=== PATIENT | male | born 1960 | race Caucasian/White ===

== ENCOUNTER 2017-04-07 16:18 | Emergency (ER) | payer MEDICARE ==
[~2017-04-07] VITALS: Ht 190.5 cm; Wt 102.3 kg
[~2017-04-07 16:18] MED LIST: CEPH-512 PO; SULF1TAB7 PO
[2017-04-07 16:24] VITALS: BP 130/83; PULSE 92; RESP 16; O2SAT 98
--- NOTE | 2017-04-07 18:36 | ED.REPORT ---
HPI-General Illness Date of Service Apr 07, 2017 ED Provider: Leopoldo Maravilla PA-C Bobby is a 56-year-old male presenting with a chief complaint of a waxy secretion from his skin. Patient reports going problems with secretion of a wax -like substance from his skin. States that he has been seen several times and "thrown out." Also complains of bilateral hip pain, worse in the morning. He can recall no specific trauma. He also complains of fluctuating testosterone levels, hair becoming bright white returning to normal color, new wrinkles in his anterior neck as well as 3-4 episodes of unexplained loss of consciousness in the last month. He reports "walking on the street and all of a sudden, bam! " Denies chest pain palpitations, shortness of breath, cough, wheeze, weakness , numbness, vision change, headache. Reports treating pain at home with oxycodone and methadone. Nursing Notes Stated Complaint: SECRETION OF WAX/HIP PAIN Chief Complaint: General Complaint Nursing Notes Reviewed: Yes Allergies: Coded Allergies: No Known Allergies (Unverified , 04/07/17) Scheduled Cephalexin (Keflex) 500 Mg Capsule 500 MG PO QID Sulfamethoxazole/Trimeth 800-160 mg (Bactrim DS) 1 Each Tablet 1 TABLET PO BID General Time Seen by MD: 18:18 Chief Complaint Other (skin problem) Past Medical History Past Medical History Ruptured dics- cervical, lumbar Diabetes Past Surgical History ankle surgery splenectomy rotator cuff repair Smoking History Current Every Day Smoker Social History Alcohol Use: Denies alcohol use Drug Use: Denies drug use Ambulatory Status Independent Review of Systems Negative unless stated otherwise in history of present illness Physical Exam General: Well appearing, well developed, well nourished, no acute distress. Head: Atraumatic, normocephalic. Eyes: No scleral icterus or injection. No discharge. Vision grossly intact. ENT: Voice clear, hearing grossly intact. Respiratory: Regular rate and rhythm. Breath sounds present, clear to auscultation and equal bilaterally. No respiratory distress. No increased work of breathing, speaks in complete sentences. Cardiovascular: Regular rate and rhythm, without murmur, gallop or rub. No pedal edema. Skin: Warm and dry. Shows signs of extensive sun exposure. Patient points out areas of paper folder pigment, slight induration and excoriation on hands, arms and neck. He also points out vertical wrinkles in his anterior neck. Hair appears normal in texture and color. Neurological: Antalgic, slightly wide gait, normal heel rise, normal toe rise. Normal rapid hand, heel-damian, finger-nose, Romberg. Negative pronator drift. Patellar reflexes 2+ bilaterally. Cranial nerves: Vision grossly intact, PERRL, EOMI. Facial motion symmetrical, sensation to light touch over forehead, maxilla and mandible present and equal B /L. Voice clear and fluent, no drooling/pooling of saliva, uvula rises midline. Psychological: Alert and oriented. Speech content is somewhat bizarre. Repeatedly states he does not have mental illness. Vital Signs Vital Signs Date Time Temp Pulse Resp B/P Pulse Ox O2 Delivery O2 Flow Rate FiO2 04/07/17 21:12 36.7 88 16 129/79 98 Room Air 04/07/17 20:45 36.6 90 16 132/82 99 Room Air 04/07/17 16:24 36.8 92 16 130/83 98 Room Air Normal Interpretation & Diagnostics Interpretation & Diagnostics: Urine tox dip positive only for prescribed methadone. Lab Results Interpretation Result Diagram: 04/07/17 1950 04/07/17 1950 Test 04/07/17 19:25 04/07/17 19:50 Urine Opiates Screen Negative Urine Methadone Screen Positive Urine Barbiturates Screen Negative Urine Amphetamines Screen Negative Urine Benzodiazepines Screen Negative Urine Cocaine Metabolite Screen Negative Urine Cannabinoids Screen Negative White Blood Count 10.8th/mm3 (3.8-10.1) Red Blood Count 4.67mil/mm3 (4.40-5.80) Hemoglobin 13.5g/dL (13.8-17.2) Hematocrit 41.5% (41.0-50.0) Mean Corpuscular Volume 88.9fL (81-100) Mean Corpuscular Hemoglobin 28.9pg (27.0-35.0) Mean Corpuscular Hemoglobin Concent 32.5% (32.0-37.0) Red Cell Distribution Width 16.7% (12.3-15.4) Platelet Count 325bil/L (150-400) Sodium Level 140mEq/L (134-144) Potassium Level 4.0mEq/L (3.5-5.2) Chloride Level 102mEq/L (97-108) Carbon Dioxide Level 24mmol/L (18-29) Blood Urea Nitrogen 11mg/dL (6-24) Creatinine 0.67mg/dL (0.76-1.27) Estimat Glomerular Filtration Rate 129mL/min (>59) Glucose Level 99mg/dL (60-99) Calcium Level 10.1mg/dL (8.5-10.1) Total Bilirubin 0.5mg/dL (0.0-1.2) Aspartate Amino Transf (AST/SGOT) 26U/L (0-50) Alanine Aminotransferase (ALT/SGPT) 17U/L (0-44) Alkaline Phosphatase 87U/L (25-150) Troponin T < 0.010ug/L (0.0-0.011) Total Protein 7.6g/dL (6.4-8.4) Albumin 4.1g/dL (3.4-5.0) Hold Reyes Top Tube Received (Received) ECG Interpretation ECG Interpretation: Sinus rhythm with a rate of 70. Nonspecific intraventricular conduction delay. No ischemic changes Time: 19:46 Interpreted by: ED physician (Dr. Geronimo) Urinalysis Interpretation Urinalys reviewed and NL Re-Eval/Medical Decision Med Decision/Clinical Course Bobby is a 56-year-old male presenting with numerous complaints. He complains of waxy discharge from his skin, unusual wrinkles on his neck, his hair turning white and then becoming normal colored again, bilateral hip pain and several episodes of loss of consciousness in the last month. Physical examination reveals several areas of reduced pigmentation on his hands arms and neck, with mild induration and excoriation. I Feel this is most likely to be tinea corporis. His description of bilateral hip pain, worse upon arising in the morning sounds most consistent with the onset of arthritis to me. He has good range of motion , slightly antalgic gait and normal vital signs. I am not concerned about fracture or septic joint. His description of loss of consciousness is somewhat concerning as he describes walking and strength subtly losing consciousness and falling to the ground without any prodrome. His neurological examination is normal, EKG normal, troponin normal and CBC CMP unremarkable. At this point I am reassured that his episodes of syncope are not caused by stroke, OR. I cannot rule out intermittent arrhythmia and have suggested considering a Holter monitor. I suspect there is a bit of a psychiatric element to this case has been of his complaints are quite bizarre. The patient is however oriented and his apparent delusions appear to be benign. I do not believe he is a threat to himself or others. Urine tox drug screen is only positive for his prescribed methadone. Patient requested a refill of his methadone, which was declined. This was except gracefully. I discussed his case with . We believe the patient is stable and safe to be discharged. Vitamin prescription for Clotrimazole cream to treat tinea corporis. Advised regarding primary care follow-up, provided emergency return precautions. Patient verbalized understanding of, and consent to, the plan. Discharge & Departure Primary Impression: Tinea corporis Additional Impressions: Syncope Syncope type: unspecified Qualified Code: R55 - Syncope and collapse Hip pain, bilateral Disposition: Home Discharge Condition All VS Reviewed: Yes Condition: Stable Additional Instructions: Evaluation in the emergency department for skin complaints, hip pain, as well as episodes loss of consciousness includes interview, physical examination, blood work and EKG all of which are reassuring that your symptoms are not caused by an immediately dangerous condition. I believe the lesions on your arms are caused by fungus. I will prescribe you a cream to apply 4 times a day. Continue using this cream until symptoms have been resolved for one week. Our investigation did not find a reason for your reported episodes of loss of consciousness. Please follow up with your primary care provider early next week to continue investigation. Consider a Holter monitor to look for an intermittent arrhythmia. Your description of hip pain is most consistent with the onset of arthritis. Because there is no history of trauma I do not see an indication to get x-rays at this time. I recommend acetaminophen 1000 mg every 6 hours to treat this pain. Please discuss this with your primary care provider. Please discuss refilling your pain medications with your primary care provider. Return to emergency department for any new or worsening symptoms including pain in your chest, feeling short of breath or neurological symptoms. Referrals: Rui Kirby DO (PCP) OTHER,PHYSICIAN Dr. Sahni EDSupervising Provider for APC: Mack Geronimo DO copies to: Rui Kirby DO Turner, Seth PA-C Apr 07, 2017 18:36
[2017-04-07 20:02] LABS: Mean Corpuscular Hemoglobin 28.9 pg (27.0-35.0); Mean Corpuscular Volume 88.9 fL (81-100)
[2017-04-07 20:24] LABS: TROPONIN T < 0.010 ug/L (0.0-0.011)
[2017-04-07 20:45] VITALS: BP 132/82; PULSE 90; RESP 16; O2SAT 99
[2017-04-07 21:12] VITALS: BP 129/79; PULSE 88; RESP 16; O2SAT 98
[2017-04-08] MEDS ORDERED: NPR500T PO (14:23)
== END 2017-04-07 21:15 | disposition home or self-care (01) ==
LOC: SED 16:18
DX: B35.4 Tinea corporis (principal); R55 Syncope and collapse; M25.551 Pain in right hip; M25.552 Pain in left hip; E11.9 Type 2 diabetes mellitus without complications; F17.200 Nicotine dependence, unspecified, uncomplicated
CPT/HCPCS: 36415; 80053; 84484; 85027; 93005; 99285; G0480

== ENCOUNTER 2017-04-08 12:58 | Emergency (ER) | payer MEDICARE ==
[~2017-04-08] VITALS: Ht 190.5 cm; Wt 100.0 kg
[2017-04-08 12:58] VITALS: BP 142/73; PULSE 86; RESP 16; O2SAT 99
--- NOTE | 2017-04-08 13:21 | ED.REPORT ---
HPI-General Illness Date of Service Apr 08, 2017 ED Provider: Rodrick Nava DO The patient is a 56 year old male with history of diabetes mellitus, who was brought to the emergency department by EMS for bilateral hip pain that has been worsening over the last few days. His symptoms are worse in the morning or after he has been immobilized for a period of time. He is able to walk. He also complains of right calf pain. He denies any new injuries or traumas. He has been taking oxycodone for pain, his last dose was 3-4 days ago. He was seen here yesterday with multiple complaints. He was discharged home with a cream for a fungal skin infection. He denies fever, chills, numbness, weakness, bladder/bowel incontinence, vomiting or diarrhea. He has an appointment with his regular doctor on Monday. Nursing Notes Stated Complaint: HIP PAIN Chief Complaint: General Complaint Nursing Notes Reviewed: Yes Allergies: Coded Allergies: No Known Allergies (Unverified , 04/08/17) Scheduled Cephalexin (Keflex) 500 Mg Capsule 500 MG PO QID Sulfamethoxazole/Trimeth 800-160 mg (Bactrim DS) 1 Each Tablet 1 TABLET PO BID Scheduled PRN Naproxen (Naproxen) 500 Mg Tab 500 MG PO BID PRN PRN For Pain General Time Seen by MD: 13:15 Chief Complaint Multip medical complaints Hx Obtained From: Patient, EMS Arrived By: Ambulance Sudden in Onset?: No Onset Occurred: More than a week ago... Symptom Duration: Since onset Location: : Hip left: Hip right: Leg right Quality: Painful Severity: Current: Moderate Severity: Maximum: Moderate Recent Healthcare: No recent hospitalization, Recent doctor visit Similar Sx Previous: Yes Past Medical History Past Medical History Ruptured dics- cervical, lumbar Diabetes mellitus Past Surgical History Right ankle surgery Splenectomy Rotator cuff repair Family History Noncontributory Smoking History Current Every Day Smoker Social History Alcohol Use: Denies alcohol use Drug Use: Denies drug use Other Social History: Local resident Ambulatory Status Independent Review of Systems Full Review of Systems Constitutional: Denies: Chills, Fever GI: Denies: Diarrhea, Vomiting Musculoskeletal: Reports: Extremity pain, Joint pain Neurologic: Denies: Bladder dysfunction, Bowel dysfunction, Numbness, Problem walking, Weakness Complete sys rev & neg: except as marked. Physical Exam Vital Signs Vital Signs Date Time Temp Pulse Resp B/P Pulse Ox O2 Delivery O2 Flow Rate FiO2 04/08/17 15:45 73 16 112/69 97 Room Air 04/08/17 12:58 37.3 86 16 142/73 99 Room Air Initial VS: Reviewed Head / Eyes: Atraumatic, Normocephalic, PERRL ENT: Mucous membranes moist, Conjunctiva normal, No scleral icterus Neck: Supple, Non-tender, Full range of motion Respiratory: Breath sounds normal, Clear to auscultation, No respiratory distress Cardiovascular: Regular rate & rhythm, Heart sounds normal, Intact distal pulses Abdomen / GI: Soft, Non-tender, No guarding, No rebound, No distention Lymphatic: No lymphadenopathy Extremities: Vascular intact, Neuro intact Skin: Warm, Dry, No cyanosis Psychiatric: Mood/affect normal, Behavior normal, Normal thought content General/Constitutional: Awake, Alert, No acute distress, Cooperative Lower Extremity / Pelvis / MS: No deformity, Neurologic intact, Vascular intact 2+ PT pulses bilaterally Neurologic: Oriented X3, Speech NL, No motor deficits, No sensory deficits, Cerebellar NL Gait Abnormality: Positive: Antalgic gait Normal sensation and motor function from L1-S1 bilaterally. Interpretation & Diagnostics X-Ray Interpretation Xray Interpretation: IMPRESSION: No acute radiographic findings. If pain persists, repeat study in 5-7 days is recommended to exclude occult fracture. Dictated by: Ani Herrera M.D. on 04/08/2017 at 14:09 X-Ray Ordered: Hip left Interpretation / Wet Read by: Interpret - Radiologist Xray Interpretation: IMPRESSION: No acute fracture dislocation. Exostoses of the proximal femur. Although these are generally a benign finding, rarely, these can be associated with chondrosarcoma. If the patient endorses focal pain in this region, nonemergent MRI is recommended to further characterize these findings. Dictated by: Ani Herrera M.D. on 04/08/2017 at 14:05 X-Ray Ordered: Hip right Interpretation / Wet Read by: Interpret - Radiologist Re-Eval/Medical Decision Med Decision/Clinical Course Patient is neurologically intact with negative straight leg raise and no lumbar pain. His exam is reassuring. His symptoms correlate with running out of his methadone and oxycodone. I do not suspect any life-threatening injuries. He is made aware of the incidental findings on x-ray and told to follow-up with his doctor regarding these. Return and follow-up precautions given. Source of Hx: Old records, EMS Time of Eval: 14:16 Re-Evaluation/Progress Note: Rechecked the patient. He is feeling somewhat better after the medication. Discussed x-ray results with the patient. He understands and agrees with plan for discharge. All questions were addressed. Counseled Regarding: Diagnosis, Need for follow-up, When/why to return to ED Discharge & Departure Primary Impression: Hip pain, bilateral Disposition: Home Discharge Condition All VS Reviewed: Yes Condition: Stable Additional Instructions: Thank you for entrusting us with you care today. Your hip x-rays today are reassuring. There is no evidence of any acute fractures. Take naproxen as prescribed. Rest and take it easy over the next few days. Apply ice packs if this helps. Call your doctor on Monday to see if you can get in sooner then Monday. Return to the emergency department for bladder or bowel incontinence, numbness, focal weakness, fever, vomiting, or any other new or concerning symptoms. Referrals: Rui Kirby DO (PCP) [facility] Attestation Portions of this note were transcribed by Hanh Bhandari. I, Dr. Nava personally performed the history, physical exam and medical decision-making; I reviewed and confirmed the accuracy of the information in the transcribed note. Signed by: Lukas Chen, 04/08/2017 at 1500. copies to: Rui Kirby DO O'Kelley, Timothy S DO Apr 08, 2017 13:21 Hanh Bhandari Apr 08, 2017 13:28
--- NOTE | 2017-04-08 14:10 | DRSVH ---
PROCEDURE: X-RAY RIGHT HIP COMPLETE, MINIMUM TWO VIEWS ([id number]) INDICATIONS: HIP PAIN TECHNIQUE: 2 views of the hip were acquired. COMPARISON: None. FINDINGS: Bones: No fractures or dislocations. 2 small exostoses are present along the medial aspect of the pr oximal femur. The visualized pelvic ring appears intact. Soft tissues: No suspicious soft tissue calcifications or masses. IMPRESSION: No acute fracture dislocation. Exostoses of the proximal femur. Although these are genera lly a benign finding, rarely, these can be associated with chondrosarcoma. If the patient endorses fo anila pain in this region, nonemergent MRI is recommended to further characterize these findings. Dictated by: Ani Herrera M.D. on 04/08/2017 at 14:05 Approved by: Ani Herrera M.D. on 04/08/2017 at 14:08
--- NOTE | 2017-04-08 14:11 | DRSVH ---
PROCEDURE: X-RAY LEFT HIP COMPLETE, MINIMUM TWO VIEWS ([id number]) INDICATIONS: HIP PAIN TECHNIQUE: 2 views of the hip were acquired. COMPARISON: None. FINDINGS: Bones: No fractures or dislocations. No suspicious bony lesions. The visualized pelvic ring appear s intact. Soft tissues: No suspicious soft tissue calcifications or masses. IMPRESSION: No acute radiographic findings. If pain persists, repeat study in 5-7 days is recommende d to exclude occult fracture. Dictated by: Ani Herrera M.D. on 04/08/2017 at 14:09 Approved by: Ani Herrera M.D. on 04/08/2017 at 14:09
[2017-04-08] MEDS ORDERED: NPR500T PO (14:23)
[2017-04-08 15:45] VITALS: BP 112/69; PULSE 73; RESP 16; O2SAT 97
== END 2017-04-08 14:56 | disposition home or self-care (01) ==
LOC: EDBD 12:58 → EDUNIT# 12:58 → SED 12:58
DX: M25.551 Pain in right hip (principal); M25.552 Pain in left hip; E11.9 Type 2 diabetes mellitus without complications; F17.200 Nicotine dependence, unspecified, uncomplicated
CPT/HCPCS: 73502; 96372; 99284; J1885